=== PATIENT | female | born 1970 | race Hispanic/Latino ===

== ENCOUNTER → 2017-08-03 | Outpatient (CLI) | payer BC | END | disposition home or self-care (01) | LOC: RAH 10:20 | PROVIDERS: ATTEND Obstetrics & Gynecology | DX: Z12.31 Encounter for screening mammogram for malignant neoplasm of breast (principal) | CPT/HCPCS: 77067 ==

== ENCOUNTER → 2018-08-09 | Outpatient (CLI) | payer BC | END | disposition home or self-care (01) | LOC: RAH 09:09 | PROVIDERS: ATTEND Obstetrics & Gynecology | DX: Z12.31 Encounter for screening mammogram for malignant neoplasm of breast (principal) | CPT/HCPCS: 77067 ==